=== PATIENT | female | born 1990 | race Caucasian/White ===

== ENCOUNTER 2023-01-15 14:47 | Outpatient (CLI) | payer OTHER, SELFPAY ==
--- NOTE | 2023-02-05 13:42 | WPDHOMESLEEP ---
Sleep Study - Home Unattended Date of Study: 01/15/23 Ordering Provider: Vincent Goldman M.D. Interpreting Provider: Stephie Dey MD Home Sleep Study Type: Watch PAT Height: 1.6 m Weight: 81.647 kg Body Mass Index: 31.8 Neck Circumference (inches): 13.5 [place]: 15 Reason for Sleep Study Hypersomnia, daytime fatigue, loud snoring with witnessed apnea Sleep History Tg Delgado is a 32-year-old female who rarely awakens from sleep feeling short of breath. She frequently awakens at night with heartburn, belching, coughing, and she snores loudly enough that others complain about it. She always has difficulty sleeping with a cold. She rarely wakes up gasping for breath at night. She frequently sweats excessively at night. She rarely notices her heart pounding excessively at night. She rarely falls asleep during the day, rarely falls asleep involuntarily but never falls asleep while driving. She rarely has loss of muscle tone with strong emotion. She occasionally has daytime difficulties due to excessive sleepiness, she works as a labor. She does not feel paralyzed on waking or falling asleep. She frequently has vivid dreamlike scenes on waking or falling asleep. She rarely feels afraid to go to sleep. She occasionally has nightmares. She frequently recalls her dreams. She always has thoughts racing through her mind. She rarely feels sad or depressed. She constant feels anxiety or worry about things. She constantly notices parts of her body jerk. She constantly kicks during the night. She constantly feels crawling or aching feelings in her legs. She constantly feels leg pain at night. She frequently grinds her teeth or has morning jaw pain. She rarely feels bothered by pain during the day and awakened by pain during the night. She occasionally wakes up feeling stiff in the morning, frequently wakes up with sore or achy muscles and pain in the neck and spine. ? Normal bedtime is around 10:00 p.m., taking about 20 minutes but sometimes up to an hour to fall asleep. She typically gets about 4-6 hours of sleep per night. Her wake up time is between 4:00 a.m. and 6:00 a.m.. She keeps a similar schedule on weekends. She may stay awake later until midnight.. Habits:??Tobacco:Quit tobacco a year ago Caffeine : 1 daily Alcohol : 1 daily Recreational substances: 1 daily PMFSH Past Medical History Medical History (Updated 02/05/23 @ 13:52 by Stephie Dey MD) Anxiety Snoring Tubal ectopic Family History Family History Grandparent Asthma Diabetes mellitus Hypertension Thyroid disorder Grandparent Diabetes mellitus Heart disease Cerebrovascular accident Social History Social History Smoking status: Never smoker Tobacco type: cigarettes and e-cigarettes/vaping Lack of Transportation: No Lack of Food: Never True Current Housing: I Have Housing Concerned About Future Housing: No Difficulty Paying Gas/Electric Bills: No Difficulty Paying for Meds: No Currently Unemployed: No Education: High School Diploma/GED Difficulty w/ Childcare or Family Care: No Medications Home Medications Medication Instructions Recorded Confirmed Type mecobalamin (vitamin B12) 1,000 1,000 mcg PO DAILY 11/10/22 11/10/22 History mcg chewable tablet omeprazole 40 mg capsule,delayed 40 mg PO DAILY #30 caps 11/10/22 11/10/22 Rx release topiramate 25 mg capsule,extended 25 mg PO DAILY 11/10/22 11/10/22 History release 24 hr Sleep Procedure The sleep study was completed using RaffstarT a technically adequate device with seven channels: peripheral arterial tone, actigraphy, body position, snore, respiratory movement, pulse oximetry, sleep staging, and heart rate. Prior to using the device, the patient received verbal and written instructions for its application and wa
[2023-02-05 13:54] VITALS: BMI 31.8
== END 2023-01-18 11:42 | disposition home or self-care (01) ==
PROVIDERS: Visit Provider Otolaryngology
DX: G47.33 Obstructive sleep apnea (adult) (pediatric) (principal); R06.83 Snoring
CPT/HCPCS: 95800

== ENCOUNTER 2023-06-25 00:47 | Day surgery (SDC) | payer OTHER, SELFPAY ==
[2023-06-15 12:31] VITALS: BMI 30.2
--- NOTE | 2023-06-15 12:33 | PC.NURSE ---
Report to the Outpatient Waiting Room, entrance under the green pavilion located off [facility], at time _1200_ on date _[id number]_. Planned Procedure Time: _2pm_. Time changes happen often and if your time is changed the preop area will call you the afternoon before. - You and your visitor will be asked to self-screen and do not enter if you have any COVID symptoms. - A mask is optional within the hospital at this time. Patients may have clear liquids (water, carbonated beverages, clear teas, apple juice) until 3 hours prior to surgery with a maximum of 20 ounces. - No food from midnight until time of surgery Take the following medications with a SIP of water the morning of surgery: ___Paroxetene and Topiramate DO NOT STOP ANY OF YOUR OTHER PRESCRIPTION MEDICATIONS PRIOR TO SURGERY ?EXCEPT THE FOLLOWING Medications to discontinue per physician ____vitamin B-12 Date to take last tcel___[phone] Please no make-up, nail french, hairspray, perfume, deodorant, or body powder the day of surgery. No jewelry (including any body piercings) or valuables the day of surgery, leave them at home. Please take a shower or bath the night before, or the morning of, surgery with an antibacterial soap. Wear comfortable, loose fitting clothing. - Jewelry must be removed prior to entering the operating room. Rings and piercings that are not removed may be cut off. - The hospital will not accept responsibility for valuables. - Please leave all valuables, including medications, at home the day of surgery. If you are going home after surgery, a licensed route driver must drive you home. - NO public transportation without another adult if you receive anesthesia. - We recommend that an adult stay with you for 24 hours following discharge. - We also recommend that you do not drive, make important decision, drink alcoholic beverages, or take any drugs that were not prescribed by your health care provider for at least 24 hours after your discharge time. Follow any additional instructions given to you from your surgeon. If you or anyone in your household have experienced Covid symptoms in the past week, please notify your surgeon or the nurse liaison at the phone number below for possible testing. Telephone instructions given to __Tg__and asked if any additional questions and then verbalized understanding. Patient advised to call surgeon office or pre surgery nurse liaison [phone] if any additional questions.
--- NOTE | 2023-06-24 08:30 | PM.IMHP ---
H&P: HPI History of Present Illness Date/Time: 06/24/23 08:30 Chief Complaint: Recurrent tonsillitis chronic tonsillitis snoring adenoid hypertrophy Narrative: planned procedure Review of Systems Review of Systems: All systems reviewed & are unremarkable except as noted in HPI and below PMFSH Past Medical History Medical History Anxiety Snoring Tubal ectopic Family History Family History Grandparent Asthma Diabetes mellitus Hypertension Thyroid disorder Grandparent Diabetes mellitus Heart disease Cerebrovascular accident Social History Social History Years smoked: 10 Smoking status: Former smoker Tobacco type: cigarettes Smoking end date: 06/15/01 Lack of Transportation: No Lack of Food: Never True Current Housing: I Have Housing Concerned About Future Housing: No Difficulty Paying Gas/Electric Bills: No Difficulty Paying for Meds: No Currently Unemployed: No Education: High School Diploma/GED Difficulty w/ Childcare or Family Care: No Living arrangements: with family Spiritual care concerns: No Meds Home Medications and Allergies Home Medications Medication Instructions Recorded Confirmed Type mecobalamin (vitamin B12) 1,000 1,000 mcg PO DAILY 11/10/22 06/15/23 History mcg chewable tablet topiramate 25 mg capsule,extended 25 mg PO DAILY 11/10/22 06/15/23 History release 24 hr fluticasone propionate 220 2 inh inhalation BID PRN Dyspnea 02/15/23 06/15/23 History mcg/actuation HFA aerosol inhaler (Flovent HFA) paroxetine HCl 20 mg tablet 20 mg PO DAILY 02/15/23 06/15/23 History alprazolam 0.25 mg tablet 0.25 mg PO DAILY 06/15/23 06/15/23 History Allergies Allergy/AdvReac Type Severity Reaction Status Date / Time Penicillins Allergy Unknown rash Verified 06/15/23 12:23 Exam Narrative: large adenoids chronic appearing tonsils Assessment and Plan Assessment and plan (1) Adenoid hypertrophy: Code(s): J35.2 - Hypertrophy of adenoids Status: Acute Assessment and Plan: plan OR tonsillectomy adenoidectomy. Risks were discussed including bleeding infection damage to surrounding structures need for further procedures damage to any structure above the clavicles by myself. Damage to any structures during the induction and maintenance of anesthesia including vocal cord paralysis. Postoperative pain infection need for further procedures change in taste change in swallow which could be permanent. 5% risk of postoperative bleeding. Need for time off work time off school. Failure to resolve symptoms. Inherent risk of narcotic use. (2) Acute recurrent tonsillitis: Code(s): J03.91 - Acute recurrent tonsillitis, unspecified Status: Acute (3) Snoring: Code(s): R06.83 - Snoring Status: Acute
--- NOTE | 2023-06-25 07:17 | WPDHPUPDATE1 ---
History and Physical Update Update Date/Time: 06/25/23 07:17 History and Physical has been reviewed, including an updated exam of the patient. There are NO changes in the patient's condition. Risks, benefits, and alternatives have been discussed and questions answered. Patient agrees to proceed with procedure.
[2023-06-25 10:01] VITALS: BP 105/61; PULSE 51; TEMP 36.9; O2SAT 98
[2023-06-25] MEDS: ACETAMINOPHEN 500 MG TABLET 1000 MG PO (10:26)
[2023-06-25] MEDS: LACTATED RINGERS 1,000 ML 30 ML IV CONT ×2 (10:50→15:17)
--- NOTE | 2023-06-25 12:48 | P.PNAN_ITS ---
Anes - Initial Pre Proc Eval Procedure: Operation Date: 06/25/23 12:15 Proposed Procedures p Tonsillectomy And Adenoidectomy - Joni Sanabria MD Date/Time: 06/25/23 12:48 Surgeon: Joni Sanabria MD Pre Op Diagnosis: recurrent tonsillitis, adenoid hypertrophy Patient Data Age: 32 Gender: F Height: 1.6 m Weight: 76.9 kg Last Vital Signs Temp 36.9 C 06/25/23 10:01 Pulse 51 L 06/25/23 10:01 BP 105/61 06/25/23 10:01 Pulse Ox 98 06/25/23 10:01 O2 Del Method Room Air 06/25/23 10:01 Allergies Allergy/AdvReac Type Severity Reaction Status Date / Time Penicillins Allergy Unknown rash Verified 06/25/23 09:57 Home Medications Medication Instructions Recorded Confirmed Type mecobalamin (vitamin B12) 1,000 1,000 mcg PO DAILY 11/10/22 06/25/23 History mcg chewable tablet topiramate 25 mg capsule,extended 25 mg PO DAILY 11/10/22 06/25/23 History release 24 hr fluticasone propionate 220 2 inh inhalation BID PRN Dyspnea 02/15/23 06/25/23 History mcg/actuation HFA aerosol inhaler (Flovent HFA) paroxetine HCl 20 mg tablet 20 mg PO DAILY 02/15/23 06/25/23 History alprazolam 0.25 mg tablet 0.25 mg PO DAILY 06/15/23 06/25/23 History Patient hx anesthesia problems: none Family hx anesthesia problems: none Results Review: All pre-operative results and documents have been reviewed as part of the pre- operative evaluation. [facility] Past Medical History Medical History Anxiety Snoring Tubal ectopic Family History Family History Grandparent Asthma Diabetes mellitus Hypertension Thyroid disorder Grandparent Diabetes mellitus Heart disease Cerebrovascular accident Social History Social History Years smoked: 10 Smoking status: Former smoker Tobacco type: cigarettes Smoking end date: 06/15/01 Lack of Transportation: No Lack of Food: Never True Current Housing: I Have Housing Concerned About Future Housing: No Difficulty Paying Gas/Electric Bills: No Difficulty Paying for Meds: No Currently Unemployed: No Education: High School Diploma/GED Difficulty w/ Childcare or Family Care: No Living arrangements: with family Spiritual care concerns: No Anes - Eval Final PreProcedure Day of Procedure 06/25/23 12:48 Patient weight: obese Heart: regular rate and rhythm Lungs: decreased breath sounds Airway: Mallampati scale class II Neurological: alert and oriented Last oral intake: >/= 8 hours ASA classification: III Emergent: no Anesthetic plan: proceed Anesthesia type and monitoring: general ETT and standard monitoring Results Review: All pre-operative results and documents have been reviewed as part of the pre- operative evaluation. Informed Consent: The patient's anesthetic plan and its attendant risks and benefits were discussed with the patient/family/POA. Questions were solicited and answers provided to the satisfaction of the patient/family/POA.
[2023-06-25 15:17] VITALS: BP 122/84; PULSE 79; RESP 14; TEMP 36.8; O2SAT 100
[2023-06-25 15:30] VITALS: BP 119/90; PULSE 84; RESP 13; O2SAT 100
[2023-06-25] MEDS: fentaNYL CITRATE INJ (*CRX) 100 MCG/2 ML VIAL 25 MCG IV PUSH ×2 (15:33→15:36)
--- NOTE | 2023-06-25 15:39 | P.OP_ITS ---
Procedure Note - Detailed Date of Procedure 06/25/23 Pre-op Diagnosis recurrent tonsillitis, adenoid hypertrophy Post-op Diagnosis Same Procedure Performed Tonsillectomy Surgeon Joni Sanabria MD Anesthesia General Indications see above Findings scarred in endophytic tonsils minimal bleeding Description of Procedure patient identified consent verified preop. Patient brought to the operating. Time-out performed. General anesthesia induced endotracheal tube secured. Patient prepped draped position procedure confirmed 2nd time-out performed. McIvor mouth gag inserted to reveal tonsils described above. They were removed bilaterally extracapsular plane using Bovie electrocautery setting of 8. Any bleeding controlled Bovie electric bipolar electrocautery setting of 8 Bovie suction electrocautery setting of 10. In-between tonsils McIvor mouth gag lowered reopened allow blood flow to return to the tongue. After tonsils were out McIvor mouth gag lowered reopened 30 seconds later revealed no further b leeding. Red rubber catheter inserted transnasally adenoid pad viewed no bleeding. Sorry no adenoid pad present. Patient tolerated the procedure well. McIvor mouth gag removed. No complications. Care the patient given Anesthesiology. Blood loss 2 cc. I performed all dictated portions of procedure. No complications. Patient taken to PACU. Estimated Blood Loss 2 Drains No Packing No Pathology Yes Complications No immediate complications Condition Stable Disposition PACU [facility] Billing Surgery - Charge Forward: Surgery Billing
[2023-06-25 15:41] VITALS: BP 115/79; PULSE 64; RESP 17; O2SAT 99
[2023-06-25 15:50] VITALS: BP 133/64; PULSE 56; RESP 17; O2SAT 100
[2023-06-25] MEDS: oxyCODONE (*CRX) 5 MG/5 ML ORAL SOLN IR PO (16:12)
[2023-06-25 16:20] VITALS: BP 123/67; PULSE 57; RESP 17
== END 2023-06-25 16:32 | disposition home or self-care (01) ==
PROVIDERS: Visit Provider Otolaryngology
PROC: (CPT 42826; principal; 2023-06-25 12:15)
DX: J35.01 Chronic tonsillitis (principal); F41.9 Anxiety disorder, unspecified; Z87.891 Personal history of nicotine dependence; E66.9 Obesity, unspecified; Z68.30 Body mass index [BMI] 30.0-30.9, adult
CPT/HCPCS: 42826; 88302; A9270; J1100; J1596; J2250; J2405; J2704; J2710; J3010; J7120